=== PATIENT | male | born 1990 | race Caucasian/White ===

== ENCOUNTER 2016-11-05 12:11 | Emergency (ER) | payer SELFPAY ==
[~2016-11-05] VITALS: Ht 167.6 cm; Wt 65.0 kg
[~2016-11-05 12:11] MED LIST: IBUP600 PO
[2016-11-05 12:12] VITALS: BP 129/79; PULSE 122; RESP 16; TEMP 98.3; O2SAT 95
--- NOTE | 2016-11-05 12:36 | PD ---
HPI Chief Complaint: Dizziness Time Seen by Provider: 12:33 Travel History International Travel<30 days: No Contact w/Intl Traveler<30days: No Traveled to known affect area: No History of Present Illness HPI 26-year-old male presents to the emergency department for evaluation of left- sided chest pain and palpitations that started 30 months prior to arrival. Patient is Serbian-speaking and history of physical is done through a manager critical care unit. He states this started after drinking a sixpack and snorting cocaine for the first time. He denies any history of IV drug use. Denies any fevers or chills. He denies abdominal pain or vomiting. He states he has had chest pain for and was worked up in the emergency department. He denies any chronic medical problems. He takes no prescribed medications. He denies any recent travel or surgery. He denies any hemoptysis or leg swelling. Patient denies any other complaints at this time. PFSH Past Medical History Cardiovascular Problems: Yes (TACHYCARDIA) Past Surgical History Surgical History: No Previous Surgery Social History Alcohol Use: Yes (OCC) Tobacco Use: No Substance Use: No Allergies-Medications (Allergen,Severity, Reaction): Coded Allergies: No Known Allergies (Unverified , 02/22/16) Reported Meds & Prescriptions Reported Meds & Active Scripts Active No Active Prescriptions or Reported Medications Review of Systems Except as stated in HPI: all other systems reviewed are Neg Physical Exam Narrative GENERAL: Well-developed well-nourished male patient, afebrile. SKIN: Warm and dry. HEAD: Normocephalic. Atraumatic. EYES: No scleral icterus. No injection or drainage. NECK: Supple, trachea midline. No JVD or lymphadenopathy. CARDIOVASCULAR: Regular rate and rhythm without murmurs, gallops, or rubs. RESPIRATORY: Breath sounds equal bilaterally. No accessory muscle use. Lungs sounds are clear to auscultation. GASTROINTESTINAL: Abdomen soft, non-tender, nondistended. MUSCULOSKELETAL: No cyanosis, or edema. Left-sided chest pain is reproducible with palpation. BACK: Nontender without obvious deformity. No CVA tenderness. Data Data Last Documented VS Vital Signs Date Time Temp Pulse Resp B/P Pulse Ox O2 Delivery O2 Flow Rate FiO2 11/05/16 12:12 98.3 122 16 129/79 95 Room Air Orders Electrocardiogram (1/1/17 ) Sodium Chlor 0.9% 1000 Ml Inj (Ns 1000 M (11/05/16 12:45) MDM Medical Decision Making Medical Screen Exam Complete: Yes Emergency Medical Condition: Yes Medical Record Reviewed: Yes Differential Diagnosis Substance abuse versus palpitations versus chronic arrhythmia versus unlikely ACS versus flexion and abnormality Narrative Course 26-year-old male presents to the emergency department for evaluation of left- sided chest pain and palpitations that started after snorting cocaine and drinking a sixpack of beer. Patient states this was his first time using cocaine. He denies any other drug use or history of IV drug use. Chest wall pain is reproducible with palpation. Patient is tachycardic, heart rate 114 on during exam. Otherwise, patient is PERC negative. I do not suspect PE due to symptoms and physical. EKG is ordered and pending. Patient is given normal saline 1 L IV fluids. EKG shows sinus tachycardia, heart rate 108, unchanged previous EKG. Upon re- assessment, patient states he feels better and would like to go home. HR is 101. Patient instructed to discontinue cocaine use and follow-up with his primary care physician. Patient is agreeable. Diagnosis Primary Impression: Substance abuse Additional Impression: Atypical chest pain Referrals: Primary Care Physician call for appointment Patient Instructions: Chest Pain (ED), General Instructions Additional Instructions: Stop using cocaine, no illegal drugs. Follow up with your primary care physician. Return to the emergency department for any acute worsening of symptoms. Med/Other Pt SpecificInfo: No Change to Meds Scripts No Active Prescriptions or Reported Meds Disposition: 01 DISCHARGE HOME Condition: Stable MykelLacy Nov 05, 2016 12:36
[2016-11-05] MEDS ORDERED: SODIUM CHLOR 0.9% 1000 ML INJ 1,000 ML IV ONE (12:45)
--- NOTE | 2016-11-05 13:51 | PD ---
Data Data Last Documented VS Vital Signs Date Time Temp Pulse Resp B/P Pulse Ox O2 Delivery O2 Flow Rate FiO2 11/05/16 12:12 98.3 122 16 129/79 95 Room Air Orders Electrocardiogram (11/05/16 ) Sodium Chlor 0.9% 1000 Ml Inj (Ns 1000 M (11/05/16 12:45) MDM Supervised Visit with ABIODUN: Yes Narrative Course I, Dr. James, have reviewed the advance practice practioner's documentation and am in agreement, met with the patient face to face, made the diagnosis, and the medical decision making was done by me. *My assessment and Findings: 26-year-old male here with complaint of left-sided chest pain, palpitations for the last 30 minutes and snorting cocaine for the first time. He denies any history of IV drug abuse, fevers or chills, ACS. Patient has been in our emergency department several times in the past with atypical chest pain with negative EKG and cardiac enzymes. On exam, regular rate and rhythm. No reproducible tenderness palpation of the chest wall. Initially tachycardic but this normalized throughout ED stay. EKG shows sinus rhythm without notable ST abnormalities and normal intervals. I suspect that his chest pain was related to his cocaine, but I do not think warrants further workup for ischemia given normal EKG. Patient was reassured and instructed to stop using cocaine. Scripts No Active Prescriptions or Reported Meds Andreina James MD Nov 05, 2016 13:51
[2016-11-05 14:07] VITALS: BP 128/82; PULSE 101; RESP 16; O2SAT 99
--- NOTE | 2016-11-06 18:05 | EKG ---
Date Performed: 11/05/2016 Time Performed: 12:53:49 PTAGE: 26 years EKG: SINUS TACHYCARDIA Diffuse anterolateral ST elevation, persistant with early Repolarization verses and accute injute pattern. Given the prior tracing is unchanged decision was consistant with E nolberto repolarization. Clinical correlation is recommended. NONSPECIFIC ST ELEVATION ABNORMAL RHYTHM EC G PREVIOUS TRACING : 02/22/2016 21.37 DOCTOR: Nora Kruger Interpretating Date/Time 11/06/2016 18:04:13
== END 2016-11-05 14:21 | disposition home or self-care (01) ==
LOC: NEPC 12:11
DX: R07.89 Other chest pain (principal); R00.0 Tachycardia, unspecified; R00.2 Palpitations; F14.10 Cocaine abuse, uncomplicated
CPT/HCPCS: 93005; 96360; 99285; J7030

== ENCOUNTER 2018-03-26 12:09 | Observation (INO) | payer MEDICAID ==
[2018-03-26] VITALS (8 sets, daily range): BP systolic 123–128; BP diastolic 70–76; PULSE 95–127; RESP 18–24; TEMP 98.3–98.7; O2SAT 96–98
[~2018-03-26] VITALS: Ht 160 cm; Wt 75.0 kg
--- NOTE | 2018-03-26 12:41 | PD ---
HPI Chief Complaint: Chest Pain Time Seen by Provider: 12:36 Travel History International Travel<30 days: No Contact w/Intl Traveler<30days: No Traveled to known affect area: No History of Present Illness HPI 27-year-old male presents with 2 hour history of chest pain. He denies other associated symptoms. Pain is 8 out of 10. He denies recurrent history of this. He denies family history of heart disease. He denies specific modifying factors. Quality is pressure. PFSH Past Medical History Medical History: Denies Significant Hx Cardiovascular Problems: Yes (TACHYCARDIA) Tetanus Vaccination: Unknown Influenza Vaccination: No Past Surgical History Surgical History: No Previous Surgery Family History Family Myocardial Infarction: No Social History Alcohol Use: Yes (OCC, last yesterday) Tobacco Use: No Substance Use: No Allergies-Medications (Allergen,Severity, Reaction): Coded Allergies: No Known Allergies (Unverified Adverse Reaction, Unknown, 03/26/18) Reported Meds & Prescriptions Reported Meds & Active Scripts Active No Active Prescriptions or Reported Medications Review of Systems Except as stated in HPI: all other systems reviewed are Neg Physical Exam Narrative GENERAL: 27-year-old male in no apparent distress SKIN: Focused skin assessment warm/dry. HEAD: Atraumatic. Normocephalic. EYES: Pupils equal and round. No scleral icterus. No injection or drainage. ENT: No nasal bleeding or discharge. Mucous membranes pink and moist. NECK: Trachea midline. No JVD. CARDIOVASCULAR: Tachycardic rate and regular rhythm. No murmur appreciated. RESPIRATORY: No accessory muscle use. Clear to auscultation. Breath sounds equal bilaterally. GASTROINTESTINAL: Abdomen soft, non-tender, nondistended. MUSCULOSKELETAL: No obvious deformities. No clubbing. No cyanosis. No edema. NEUROLOGICAL: Awake and alert. No obvious cranial nerve deficits. Motor grossly within normal limits. Normal speech. Data Data Last Documented VS Vital Signs Date Time Temp Pulse Resp B/P (MAP) Pulse Ox O2 Delivery O2 Flow Rate FiO2 03/26/18 13:47 95 21 123/74 (90) 98 Room Air 03/26/18 12:40 98.3 Orders Orders Electrocardiogram (03/26/18 12:36) B-Type Natriuretic Peptide (03/26/18 12:36) Ckmb (Isoenzyme) Profile (03/26/18 12:36) Complete Blood Count With Diff (03/26/18 12:36) Comprehensive Metabolic Panel (03/26/18 12:36) D-Dimer (03/26/18 12:36) Magnesium (Mg) (03/26/18 12:36) Prothrombin Time / Inr (Pt) (03/26/18 12:36) Act Partial Throm Time (Ptt) (03/26/18 12:36) Troponin I (03/26/18 12:36) Lipase (03/26/18 12:36) Chest, Single Ap (03/26/18 12:36) Ecg Monitoring (03/26/18 12:36) Bilateral Bp Monitoring (03/26/18 12:36) Iv Access Insert/Monitor (03/26/18 12:36) Oximetry (03/26/18 12:36) Sodium Chloride 0.9% Flush (Ns Flush) (03/26/18 12:45) CKMB (03/26/18 12:40) CKMB% (03/26/18 12:40) Sodium Chlor 0.9% 1000 Ml Inj (Ns 1000 M (03/26/18 13:45) Aspirin (Aspirin) (03/26/18 14:00) Admit Order (Ed Use Only) (03/26/18 13:52) Labs Laboratory Tests Test 03/26/18 12:40 White Blood Count 8.7 TH/MM3 Red Blood Count 5.21 MIL/MM3 Hemoglobin 15.6 GM/DL Hematocrit 46.4 % Mean Corpuscular Volume 89.1 FL Mean Corpuscular Hemoglobin 30.0 PG Mean Corpuscular Hemoglobin Concent 33.7 % Red Cell Distribution Width 13.9 % Platelet Count 241 TH/MM3 Mean Platelet Volume 9.1 FL Neutrophils (%) (Auto) 61.0 % Lymphocytes (%) (Auto) 33.0 % Monocytes (%) (Auto) 5.5 % Eosinophils (%) (Auto) 0.2 % Basophils (%) (Auto) 0.3 % Neutrophils # (Auto) 5.3 TH/MM3 Lymphocytes # (Auto) 2.9 TH/MM3 Monocytes # (Auto) 0.5 TH/MM3 Eosinophils # (Auto) 0.0 TH/MM3 Basophils # (Auto) 0.0 TH/MM3 CBC Comment DIFF FINAL Differential Comment Prothrombin Time 10.7 SEC Prothromb Time International Ratio 1.1 RATIO Activated Partial Thromboplast Time 23.4 SEC D-Dimer Quantitative (PE/DVT) 0.22 MG/L FEU Blood Urea Nitrogen 13 MG/DL Creatinine 0.92 MG/DL Random Glucose 130 MG/DL Total Protein 8.3 GM/DL Albumin 4.0 GM/DL Calcium Level 8.3 MG/DL Magnesium Level 1.8 MG/DL Alkaline Phosphatase 69 U/L Aspartate Amino Transf (AST/SGOT) 32 U/L Alanine Aminotransferase (ALT/SGPT) 63 U/L Total Bilirubin 0.3 MG/DL Sodium Level 143 MEQ/L Potassium Level 3.7 MEQ/L Chloride Level 107 MEQ/L Carbon Dioxide Level 20.2 MEQ/L Anion Gap 16 MEQ/L Estimat Glomerular Filtration Rate 97 ML/MIN Total Creatine Kinase 189 U/L Creatine Kinase MB 1.4 NG/ML Troponin I LESS THAN 0.02 NG/ML B-Type Natriuretic Peptide LESS THAN 2 PG/ML Lipase 126 U/L MDM Medical Decision Making Medical Screen Exam Complete: Yes Emergency Medical Condition: Yes Medical Record Reviewed: Yes (Past history confirmed, prior records notes snorting cocaine) Interpretation(s) EKG shows sinus tachycardia at 120, no ST elevation or depression, and no arrhythmias. No significant T-wave inversions. CBC & BMP Diagram 03/26/18 12:40 Total Protein 8.3 H, Albumin 4.0, Calcium Level 8.3 L, Magnesium Level 1.8, Alkaline Phosphatase 69, Aspartate Amino Transf (AST/SGOT) 32, Alanine Aminotransferase (ALT/SGPT) 63, Total Bilirubin 0.3 Last 24 hours Impressions Chest X-Ray 03/26/18 1236 Signed Impressions: CONCLUSION: No acute cardiopulmonary disease. Differential Diagnosis PE, musculoskeletal, gastritis, atypical cardiac Narrative Course Will check lab work, EKG, chest x-ray and monitor. ED workup no acute, will add on urine drug screen with history of cocaine use and pass even though denies And monitor enzymes in chest pain center Diagnosis Primary Impression: Chest pain Qualified Codes: R07.9 - Chest pain, unspecified Admitting Information Admitting Physician Requests: Observation Scripts No Active Prescriptions or Reported Meds Carmina Malone MD March 26, 2018 12:41
[2018-03-26] MEDS ORDERED: SODIUM CHLORIDE 0.9% FLUSH 10 ML FLUSH IVF PRN (12:45)
[2018-03-26 12:55] LABS: AUTOMATED NEUTROPHIL # 5.3 TH/MM3 (1.8-7.7); BASOPHIL % 0.3 % (0.0-2.0); EOSINOPHIL % 0.2 % (0.0-4.0); HEMATOCRIT 46.4 % (39.0-51.0); HEMOGLOBIN 15.6 GM/DL (13.0-17.0); LYMPHOCYTE # 2.9 TH/MM3 (1.0-4.8); MEAN CELL VOLUME 89.1 FL (80.0-100.0); MEAN CORPUSCULAR HGB CONC 33.7 % (32.0-36.0); MEAN PLATELET VOLUME 9.1 FL (7.0-11.0); MONO % 5.5 % (0.0-8.0); MONOCYTE # 0.5 TH/MM3 (0-0.9); PLATELET COUNT 241 TH/MM3 (150-450); RED BLOOD COUNT 5.21 MIL/MM3 (4.50-5.90); RED CELL DISTRIBUTION WIDTH 13.9 % (11.6-17.2); WHITE BLOOD COUNT 8.7 TH/MM3 (4.0-11.0)
[2018-03-26 13:05] LABS: INTERNATIONAL NORMALIZED RATIO 1.1 RATIO; PROTHROMBIN TIME - PATIENT 10.7 SEC (9.8-11.6)
[2018-03-26 13:07] LABS: D-DIMER 0.22 MG/L FEU (0.00-0.50)
[2018-03-26 13:12] LABS: AST (GOT) 32 U/L (15-37); BICARBONATE 20.2 MEQ/L (21.0-32.0); BLOOD UREA NITROGEN 13 MG/DL (7-18); CALCIUM 8.3 MG/DL (8.5-10.1); CHLORIDE 107 MEQ/L (98-107); CREATININE 0.92 MG/DL (0.60-1.30); GLOMERULAR FILTRATION RATE 97 ML/MIN (>89); GLUCOSE,RANDOM 130 MG/DL (74-106); MAGNESIUM 1.8 MG/DL (1.5-2.5); SODIUM (NA) 143 MEQ/L (136-145)
[2018-03-26 13:16] LABS: ALKALINE PHOSPHATASE 69 U/L (45-117); ALT (GPT) 63 U/L (12-78); TOTAL BILIRUBIN ADULT 0.3 MG/DL (0.2-1.0); TOTAL PROTEIN 8.3 GM/DL (6.4-8.2); TROPONIN I LESS THAN 0.02 NG/ML (0.02-0.05)
--- NOTE | 2018-03-26 13:36 | RADRPT ---
EXAM DATE: 03/26/2018 1:17 PM EDT AGE/SEX: 27 years / Male INDICATIONS: Chest pain. CLINICAL DATA: This is the patient's initial encounter. Patient reports that signs and symptoms have been present for 1 day and indicates a pain score of 4/10. MEDICAL/SURGICAL HISTORY: None. None. [place] [facility] [place]. . FINDINGS: A single AP view of the chest demonstrates the lungs to be symmetrically aerated without e vidence of mass, infiltrate or effusion. The cardiomediastinal contours are unremarkable. Osseous s tructures are intact. CONCLUSION: No acute cardiopulmonary disease. Electronically signed by: Dieter Kelley MD 03/26/2018 1:34 PM EDT
[2018-03-26] MEDS ORDERED: SODIUM CHLOR 0.9% 1000 ML INJ 1,000 ML IV ONE ×2 (13:45→16:43)
--- NOTE | 2018-03-26 13:59 | EKG ---
Date Performed: 03/26/2018 Time Performed: 12:38:55 PTAGE: 27 years EKG: SINUS TACHYCARDIA NONSPECIFIC ST ELEVATION ABNORMAL RHYTHM ECG No significant change from p rior electrocardiogram. DOCTOR: Andres Abdullahi Interpretating Date/Time 03/26/2018 13:59:29
[2018-03-26] MEDS ORDERED: ASPIRIN 325 MG TAB PO ONE (14:00)
[2018-03-26] MEDS ORDERED: ACETAMINOPHEN 500 MG CPLT PO PRN (15:45)
[2018-03-26] MEDS ORDERED: ACETAMINOPHEN/HYDROcodone 325 MG/7.5 MG TAB PO PRN (15:45)
[2018-03-26] MEDS ORDERED: ALPRAZolam 0.25 MG TAB PO PRN (15:45)
[2018-03-26] MEDS ORDERED: cloNIDine HCL 0.1 MG TAB PO PRN (15:45)
[2018-03-26] MEDS ORDERED: ONDANSETRON ODT 4 MG TAB PO PRN (15:45)
[2018-03-26] MEDS: PANTOPRAZOLE SOD 40 MG DELAYED RELEASE TAB PO SCH (15:45)
--- NOTE | 2018-03-26 15:59 | HHI.HP ---
HPI Primary Care Physician No Primary Care Physician Chief Complaint Chest pain History of Present Illness This is a 27-year-old Ecuadorean-speaking male that presents to ED via private vehicle with a complaint of developing a central chest pain that he describes as stabbing while he was at work this morning. The patient's history and physical was obtained while also using [employer] for translation. 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 States it lasted 1 hour. Also felt like his heart was beating fast. Discomfort was rated as an 8 out of 10. States he was short of breath. No nausea or diaphoresis. He states he has had symptoms like this in the past and has had it evaluated and states they could never tell him what was causing his pain. Upon reviewing records he was seen in his hospital and discharged from the ED with the plan of chest pain. Apparently he had tried cocaine for the first time and developed the discomfort. He states he has not used any illicit drugs since. Currently denies chest discomfort. Denies recent illness. Denies fevers or chills. Review of Systems General: Patient denies fevers, chills, and recent travel. HEENT: Patient denies headache, sore throat, difficulty swallowing. Cardiovascular: Has the chest discomfort as mentioned above. Denies sensation of heart beating rapidly or irregularly. No syncope. Denies diaphoresis. Respiratory: He was short of breath. Denies inspirational chest discomfort. Denies coughing wheezing or hemoptysis. GI: Patient denies nausea, vomiting, diarrhea, abdominal pain, bloody stools. Musculoskeletal: Patient denies joint pain or edema. Denies calf pain or edema. Neurovascular: Patient denies numbness, tingling, weakness in extremities. Denies headache. Endocrine: Denies polyuria and polydipsia. Hematologic: Denies easy bruising. Skin: Denies rash or itching. Past Family Social History Allergies: Coded Allergies: No Known Allergies (Unverified Allergy, Unknown, 03/26/18) Past Medical History Denies hypertension, hyperlipidemia, diabetes, and known CAD. Past Surgical History Denies prior surgeries. Reported Medications Reported Meds & Active Scripts Active No Active Prescriptions or Reported Medications Active Ordered Medications Current Medications Medications (Trade) Dose Ordered Sig/Lawson Route Start Time Stop Time Status Last Admin (NS Flush) 2 ml UNSCH PRN IVF 03/26/18 12:45 (Tylenol) 500 mg Q4H PRN PO 03/26/18 15:45 ([place] 7.5-325 Mg) 1 tab Q4H PRN PO 03/26/18 15:45 (Protonix) 40 mg DAILY PO 03/26/18 15:45 (Aspirin) 325 mg DAILY PO 03/27/18 09:00 (Xanax) 0.25 mg Q8H PRN PO 03/26/18 15:45 (Zofran Odt) 4 mg Q6H PRN PO 03/26/18 15:45 (Catapres) 0.1 mg Q4H PRN PO 03/26/18 15:45 Family History Denies family history of CAD. Social History Does not smoke. States he has not used and illicit drugs in a couple years. States that at that time he only used cocaine once. Has on average 5-6 beers a week. Physical Exam Vital Signs Vital Signs Date Time Temp Pulse Resp B/P (MAP) Pulse Ox O2 Delivery O2 Flow Rate FiO2 03/26/18 15:20 98.7 106 24 128/76 (93) 98 03/26/18 13:47 95 21 123/74 (90) 98 Room Air 03/26/18 12:40 98.3 121 20 127/73 (91) 98 Room Air 127/73 (91) 03/26/18 12:39 98.3 121 20 127/73 (91) 98 Room Air 03/26/18 12:37 98.3 121 20 127/73 (91) 98 Room Air 03/26/18 12:37 121 20 98 Room Air 03/26/18 12:32 127 20 127/73 (91) 98 Physical Exam GENERAL: This is a well-nourished, well-developed patient, in no apparent distress. Patient speaks in clear complete sentences. Patient is pleasant. HEENT: Head is atraumatic and normocephalic. Neck is supple without lymphadenopathy and trachea is midline. No JVD or carotid bruits. CARDIOVASCULAR: Regular rate and rhythm without murmurs, gallops, or rubs. RESPIRATORY: Clear to auscultation. Breath sounds equal bilaterally. No wheezes , rales, or rhonchi. Chest wall is tender and is the same type of discomfort he had earlier today. No use of accessory muscles. GASTROINTESTINAL: Abdomen is nontender, nondistended. Abdomen soft. No obvious pulsatile mass or bruit. No CVA tenderness. Strong femoral pulses bilaterally. Normal bowel sounds in all quadrants. MUSCULOSKELETAL: Patient is moving upper and lower extremities freely. No calf tenderness or edema, no Homans sign. Strong pulses in upper and lower extremities. NEUROLOGICAL: Patient is alert and oriented. Cranial nerves 2-12 are grossly intact. No focal deficits and speech is clear. SKIN: No rash and turgor is normal. Laboratory Laboratory Tests Test 03/26/18 12:40 03/26/18 15:05 White Blood Count 8.7 Red Blood Count 5.21 Hemoglobin 15.6 Hematocrit 46.4 Mean Corpuscular Volume 89.1 Mean Corpuscular Hemoglobin 30.0 Mean Corpuscular Hemoglobin Concent 33.7 Red Cell Distribution Width 13.9 Platelet Count 241 Mean Platelet Volume 9.1 Neutrophils (%) (Auto) 61.0 Lymphocytes (%) (Auto) 33.0 Monocytes (%) (Auto) 5.5 Eosinophils (%) (Auto) 0.2 Basophils (%) (Auto) 0.3 Neutrophils # (Auto) 5.3 Lymphocytes # (Auto) 2.9 Monocytes # (Auto) 0.5 Eosinophils # (Auto) 0.0 Basophils # (Auto) 0.0 CBC Comment DIFF FINAL Differential Comment Prothrombin Time 10.7 Prothromb Time International Ratio 1.1 Activated Partial Thromboplast Time 23.4 D-Dimer Quantitative (PE/DVT) 0.22 Blood Urea Nitrogen 13 Creatinine 0.92 Random Glucose 130 Total Protein 8.3 Albumin 4.0 Calcium Level 8.3 Magnesium Level 1.8 Alkaline Phosphatase 69 Aspartate Amino Transf (AST/SGOT) 32 Alanine Aminotransferase (ALT/SGPT) 63 Total Bilirubin 0.3 Sodium Level 143 Potassium Level 3.7 Chloride Level 107 Carbon Dioxide Level 20.2 Anion Gap 16 Estimat Glomerular Filtration Rate 97 Total Creatine Kinase 189 Creatine Kinase MB 1.4 Troponin I LESS THAN 0.02 B-Type Natriuretic Peptide LESS THAN 2 Lipase 126 Result Diagram: 03/26/18 1240 03/26/18 1240 Imaging Last 48 hours Impressions Chest X-Ray 03/26/18 1236 Signed Impressions: CONCLUSION: No acute cardiopulmonary disease. Course Initial EKG is sinus tachycardia rate [address] segment depressions or elevations. Caprini VTE Risk Assessment Caprini VTE Risk Assessment: No/Low Risk (score <= 1) Caprini Risk Assessment Model Point Value = 1 Point Value = 2 Point Value = 3 Point Value = 5 Age 41-60 Minor surgery BMI > 25 kg/m2 Swollen legs Varicose veins or History of unexplained or recurrent spontaneous Oral contraceptives or hormone replacement Sepsis (< 1 month) Serious lung disease, including pneumonia (< 1 month) Abnormal pulmonary function Acute myocardial infarction Congestive heart failure (< 1 month) History of inflammatory bowel disease Medical patient at bed rest Age 61-74 Arthroscopic surgery Major open surgery (> 45 min) Laparoscopic surgery (> 45 min) Malignancy Confined to bed (> 72 hours) Immobilizing plaster cast Central venous access Age >= 75 History of VTE Family history of VTE Factor V Leiden Prothrombin [id number] Lupus anticoagulant Anticardiolipin antibodies Elevated serum homocysteine Heparin-induced thrombocytopenia Other congenital or acquired thrombophilia Stroke (< 1 month) Elective arthroplasty Hip, pelvis, or leg fracture Acute spinal cord injury (< 1 month) Prophylaxis Regimen Total Risk Factor Score Risk Level Prophylaxis Regimen 0-1 Low Early ambulation 2 Moderate Order ONE of the following: *Sequential Compression Device (SCD) *Heparin 5000 units SQ BID 3-4 Higher Order ONE of the following medications: *Heparin 5000 units SQ TID *Enoxaparin/Lovenox 40 mg SQ daily (WT < 150 kg, CrCl > 30 mL/min) *Enoxaparin/Lovenox 30 mg SQ daily (WT < 150 kg, CrCl > 10-29 mL/min) *Enoxaparin/Lovenox 30 mg SQ BID (WT < 150 kg, CrCl > 30 mL/min) AND/OR *Sequential Compression Device (SCD) 5 or more Highest Order ONE of the following medications: *Heparin 5000 units SQ TID (Preferred with Epidurals) *Enoxaparin/Lovenox 40 mg SQ daily (WT < 150 kg, CrCl > 30 mL/min) *Enoxaparin/Lovenox 30 mg SQ daily (WT < 150 kg, CrCl > 10-29 mL/min) *Enoxaparin/Lovenox 30 mg SQ BID (WT < 150 kg, CrCl > 30 mL/min) AND *Sequential Compression Device (SCD) Assessment and Plan Assessment and Plan * Chest pain: Patient will continue to have serial cardiac enzymes and EKGs for ruling out purposes. Patient will be evaluated by Dr. Kruger of cardiology in the chest pain center and at that point further plan will be decided. Patient at discharge will be instructed to follow-up with a local physician and to return to ED for interval issues. Patient is stable at this time. He is agreeable to this plan. Bakari Maldonado March 26, 2018 15:59
[2018-03-26 17:09] LABS: TROPONIN I LESS THAN 0.02 NG/ML (0.02-0.05)
[2018-03-26 19:07] LABS: TROPONIN I LESS THAN 0.02 NG/ML (0.02-0.05)
[2018-03-27] VITALS: PULSE 65
[2018-03-27 01:32] VITALS: BP 107/61; PULSE 69; RESP 18; TEMP 97.7; O2SAT 99
[2018-03-27 03:11] VITALS: PULSE 101
[2018-03-27 04:20] VITALS: BP 114/66; PULSE 68; RESP 18; TEMP 97.8; O2SAT 100
[2018-03-27 07:40] VITALS: BP 115/69; PULSE 69; RESP 18; TEMP 97.9; O2SAT 98
[2018-03-27] MEDS: PANTOPRAZOLE SOD 40 MG DELAYED RELEASE TAB PO SCH (08:44)
[2018-03-27] MEDS ORDERED: ASPIRIN 325 MG TAB PO SCH (09:00)
[2018-03-27] MEDS ORDERED: REGADENOSON INJ 0.4 MG/5 ML SYR ONE (10:43)
--- NOTE | 2018-03-27 14:16 | RADRPT ---
EXAM DATE: 03/27/2018 2:08 PM EDT AGE/SEX: 27 years / Male INDICATIONS:Angina. . Mid chest pain for one day. CLINICAL DATA: This is the patient's initial encounter. Patient reports that signs and symptoms have been present for 1 day and indicates a pain score of 8/10. MEDICAL/SURGICAL HISTORY: Non-responsive. Non-responsive. COMPARISON: No prior [facility] exams available for comparison. No external comparison. DOSE: 8.4 mCi Tc 99m Myoview at rest 26.7 mCi [id number] at stress 0.4 mg Lexiscan STRESS SYMPTOMS: None noted. EJECTION FRACTION: 69 % TECHNIQUE: The patient underwent pharmacologic stress with infusion of prescribed dose. Continuous ECG tracing was monitored during stress. Gated SPECT imaging was performed after stress and conventi onal SPECT imaging was performed at rest. The examination was performed on a SPECT/CT scanner, both attenuation and non-corrected datasets were reviewed. FINDINGS: Distribution: The maximum perfused segment at stress is in the septal wall. Perfusion Study: The pattern of perfusion at stress is within normal limits. Gated Study: There are intact wall motion and wall thickening without hypokinetic or dyskinetic segm ents. The ejection fraction is calculated at 69%. RISK CATEGORY: Low (<1% Annual Motality Rate) CONCLUSION: 1. Unremarkable myocardial perfusion exam. Electronically signed by: Goran Martinez MD 03/27/2018 2:14 PM EDT
--- NOTE | 2018-03-27 14:22 | HHI.DCPOC ---
Discharge Care Plan Diagnosis: (1) Chest pain, atypical Goals to Promote Your Health * To prevent worsening of your condition and complications * To maintain your health at the optimal level Directions to Meet Your Goals Take your medications as prescribed Follow your dietary instruction Follow activity as directed Keep your appointments as scheduled Take your immunizations and boosters as scheduled If your symptoms worsen call your PCP, if no PCP go to Urgent Care Center or Emergency Room Smoking is Dangerous to Your Health. Avoid second hand smoke Call the 24-hour hour crisis hotline for domestic abuse at Bakari Maldonado March 27, 2018 14:22
--- NOTE | 2018-03-28 15:59 | EKG ---
Date Performed: 03/26/2018 Time Performed: 18:32:35 PTAGE: 27 years EKG: SINUS TACHYCARDIA NONSPECIFIC ST ELEVATION ABNORMAL RHYTHM ECG No significant change PREVIOUS TRACING : 03/26/2018 15.55 DOCTOR: Sonido Pickard Interpretating Date/Time 03/28/2018 15:58:16
--- NOTE | 2018-03-28 16:01 | EKG ---
Date Performed: 03/26/2018 Time Performed: 15:55:01 PTAGE: 27 years EKG: SINUS TACHYCARDIA NONSPECIFIC ST ELEVATION ABNORMAL RHYTHM ECG No significant change PREVIOUS TRACING : 03/26/2018 12.38 DOCTOR: Sonido Pickard Interpretating Date/Time 03/28/2018 15:59:51
--- NOTE | 2018-03-28 16:04 | TR ---
Date Performed: 03/27/2018 Time Performed: 10:43:12 DOCTOR: Sonido Pickard DRUG LIST: CLINICAL HISTORY: REASON FOR TEST: REASON FOR ENDING: OBSERVATION: CONCLUSION: Lexiscan stress test was performed under standard four minute protocol. Radionuclide was injected one minute prior to ending the test. No electrocardiographic abormalities were present to suggest ischemia. Nuclear imaging and interpretation are pending. COMMENTS:
== END 2018-03-27 16:02 | disposition home or self-care (01) ==
LOC: NEPC 12:09 → NEDA 13:53 → NEPFCDU 15:20
PROVIDERS: ADMIT Internal Medicine Interventional Cardiology; ATTEND Internal Medicine Interventional Cardiology
DX: R07.89 Other chest pain (principal); R00.0 Tachycardia, unspecified; R06.02 Shortness of breath; R94.31 Abnormal electrocardiogram [ECG] [EKG]
CPT/HCPCS: 71045; 78452; 80053; 80307; 82550; 82552; 83690; 83735; 83880; 84443; 84484; 85025; 85379; 85610; 85730; 93005; 93017; 96360; 96361; 99285; A9502; G0378; J2785; J7030